=== PATIENT | female | born 1955 | race Caucasian/White ===

== ENCOUNTER → 2017-05-01 | Outpatient (CLI) | payer OTHER ==
--- NOTE | ~2017-05-01 | CR181 ---
[facility]. [facility] A Service of [facility] & [facility] RADIOLOGY TEXT RESULTS PATIENT: KAVON HALE LOCATION: [facility] : 51 UNIT #: [id number] AGE: [address]: Lucas Mccracken MD SEX: F ORDER DR: [id number] [place] [id number] O MR#: [id number] Acc #: [id number] NAME: KAVON HALE : 1955 SEX: F STUDY DATE/TIME: 05/01/2017 11:22 UNIT: [facility] ROOM: STUDY DESCRIPTION: CR Lumbar Spine 2 or 3 Views Attending Physician: Lucas Mccracken M.D. Referring Physician: Lucas Mccracken M.D. Ordering Physician: Lucas Mccracken M.D. Primary Care Physician: Lucas Mccracken M.D. MEDICAL IMAGING REPORT This report is preliminary unless electronic signature is present. EXAM 3 views lumbar spine DATE 05/01/2017 HISTORY 61-year-old female with low back pain for multiple years, since 2000, getting worse. No known injury. Tingling sensation in the right and left lower extremities. COMPARISON None. FINDINGS There is approximately 6.2 degrees levoscoliosis of the lumbar spine centered at the L2-3 level. Advanced facet arthropathy is present on the right at L3-4, L4-5, and L5-S1, and the left at L4-5 and to a lesser degree at L5-S1. No acute lumbar spine fracture or subluxation is seen. There is mild diminished disc height at L5-S1. No suspicious osteolytic or osteoblastic lesions are identified. There is dense calcific atherosclerotic change within the abdominal aorta and bilateral common iliac arteries. Questionable aneurysmal dilation of the infrarenal abdominal aorta up to 4.3 cm based upon measurements of wall calcifications on the lateral view. No sacroiliac joint diastasis. IMPRESSION IMPRESSION 1. Advanced lumbar facet arthropathy greatest on the right from L3-4, L4-5 to L5-S1, and greatest on the left at L4-5. 2. Mild lumbar levoscoliosis centered at L3. STS. [facility] A Service of [facility] & [facility] RADIOLOGY TEXT RESULTS PATIENT: KAVON HALE LOCATION: [facility] : 51 UNIT #: [id number] AGE: [address]: Lucas Mccracken MD SEX: F ORDER DR: 3. Question raised of 4.3 cm fusiform infrarenal abdominal aortic aneurysm. Consider correlation to CTA of the abdomen and pelvis with IV contrast. If the patient cannot tolerate IV contrast, abdominal aortic ultrasound may prove helpful. Dictated by... Josefina Muñoz M.D. THIS IS AN ELECTRONICALLY VERIFIED REPORT Josefina Muñoz M.D. at 05/03/2017 8:59 AM [facility]/bryanna TD: 05/02/2017 13:05 JOB #: [id number] MEDICAL IMAGING REPORT Page 1 of 1
== END | disposition home or self-care (01) ==
LOC: SRAD 11:15
DX: M54.5 Low back pain (principal); M46.96 Unspecified inflammatory spondylopathy, lumbar region; M46.97 Unspecified inflammatory spondylopathy, lumbosacral region; M41.9 Scoliosis, unspecified
CPT/HCPCS: 72100

== ENCOUNTER → 2017-05-19 | Outpatient (CLI) | payer OTHER ==
--- NOTE | ~2017-05-19 | US10 ---
[id number] [facility] [address]. [place], [place] [address] [id number] O MR#: [id number] Acc #: [id number] NAME: KAVON HALE : 1955 SEX: F STUDY DATE/TIME: 05/19/2017 7:49 UNIT: [facility] ROOM: STUDY DESCRIPTION: US Aorta Complete Attending Physician: Rocky Prieto M.D. Referring Physician: Rocky Prieto M.D. Ordering Physician: Rocky Prieto M.D. Primary Care Physician: Rocky Prieto M.D. MEDICAL IMAGING REPORT This report is preliminary unless electronic signature is present EXAM Abdominal aortic duplex. HISTORY Abdominal aortic aneurysm seen on x-ray. FINDINGS Duplex imaging of the abdominal aorta was performed. The abdominal aorta is patent with a proximal diameter of 2.8 x 2.3 cm, mid abdominal aorta measured 3.9 x 3.1 cm, and distally it measures 3.6 x 3.6 cm. IMPRESSION Abdominal aortic duplex shows small abdominal aortic aneurysm with a maximum diameter of 3.9 x 3.1 cm in the midportion. Dictated by... Slava Soler M.D. THIS IS AN ELECTRONICALLY VERIFIED REPORT Slava Soler M.D. at 05/22/2017 4:39 PM Ifeoma TD: 05/20/2017 03:47 JOB #: [id number] MEDICAL IMAGING REPORT Page 1 of 1 COPY
== END | disposition home or self-care (01) ==
LOC: CWCC 07:34
DX: I71.4 Abdominal aortic aneurysm, without rupture (principal); I10 Essential (primary) hypertension; E78.00 Pure hypercholesterolemia, unspecified; F17.290 Nicotine dependence, other tobacco product, uncomplicated
CPT/HCPCS: 76770

== ENCOUNTER → 2017-05-30 | Outpatient (CLI) | payer OTHER ==
[2017-05-30 11:16] LABS: CREATININE SERUM 0.8 mg/dL (0.6-1.4); GLOM FILT RATE Estimated 78.5 mL/min (>60)
== END | disposition home or self-care (01) ==
LOC: CLAB 10:34
PROVIDERS: Registered Nurse
DX: I71.4 Abdominal aortic aneurysm, without rupture (principal)
CPT/HCPCS: 36415; 82565; 84520

== ENCOUNTER → 2017-06-01 | Outpatient (CLI) | payer OTHER ==
--- NOTE | ~2017-06-01 | CT14 ---
[facility] A Service of [facility] & [facility] RADIOLOGY TEXT RESULTS PATIENT: KAVON HALE [facility] UNIT #: [id number] AGE: [address]: Rocky Prieto MD SEX: F ORDER DR: [id number] [facility] [address] [place], [place] [address] [id number] O MR#: [id number] [facility] #: [id number] NAME: KAVON HALE : 1955 SEX: F STUDY DATE/TIME: 06/01/2017 14:06 UNIT: [facility] ROOM: STUDY DESCRIPTION: CT Angio Abdomen and Pelvis Attending Physician: Rocky Prieto M.D. Referring Physician: Rocky Prieto M.D. Ordering Physician: Rocky Prieto M.D. Primary Care Physician: Lucas Mccracken M.D. MEDICAL IMAGING REPORT This report is preliminary unless electronic signature is present EXAM CT angiogram abdomen and pelvis INDICATIONS Followup aortic aneurysm. TECHNIQUE CT angiogram abdomen and pelvis was performed following administration of IV contrast. Coronal, sagittal 3-D reformatted images were obtained. This CT exam was performed with one or more of the following radiation dose reduction techniques: automatic exposure control, adjustment of mA and/or kV according to patient size, and iterative reconstruction. COMPARISON STUDIES No prior CT studies are available for comparison. FINDINGS CT angiogram: There is extensive atherosclerotic atheromatous plaque within the abdominal aorta. There is a focal aneurysmal dilatation of the abdominal aorta measuring about 3.2 cm in greatest AP dimension at the level just above the celiac artery. There is extensive atheromatous plaque at the level of the renal arteries. There is aneurysmal dilatation of the infrarenal abdominal aorta measuring about 3.9 cm in greatest AP dimension. There is a very short neck between the aneurysm at the level of the renal arteries. There is extensive plaque in the iliac arteries but no iliac artery aneurysms. The celiac artery is patent. There is moderate narrowing of the proximal SMA. Neip-mw-tyydxjwn narrowing of the renal arteries. The inferior mesenteric artery is patent. CT of the abdomen: There are emphysematous changes of the lung bases. The liver is unremarkable. The gallbladder and spleen are unremarkable. [facility] A Service of [facility] RADIOLOGY TEXT RESULTS PATIENT: KAVON HALE LOCATION: [facility] : 51 UNIT #: [id number] AGE: [address]: Rocky Prieto MD SEX: F ORDER DR: The kidneys, adrenal glands and pancreas are unremarkable. Pelvis: The colon is unremarkable. The appendix is normal. There is no free fluid. The bone windows show degenerative changes of the lumbar spine. IMPRESSION 1. There is an infrarenal abdominal aortic aneurysm measuring about 3.9 cm in greatest AP dimension with a very short aneurysm neck between the level of the aneurysm and the renal arteries. 2. There is a suprarenal aortic aneurysm measuring about 3.2 cm in greatest AP dimension at the level of the celiac artery. 3. Extensive atheromatous and atherosclerotic plaque involving the aorta and the iliac arteries. Dictated by... Andrew Riddle M.D. THIS IS AN ELECTRONICALLY VERIFIED REPORT Andrew Riddle M.D. at 06/04/2017 12:08 PM [facility]/leidy TD: 06/03/2017 10:26 JOB #: [id number] MEDICAL IMAGING REPORT Page 1 of 1 COPY
== END | disposition home or self-care (01) ==
LOC: CCAT 12:45
DX: I71.4 Abdominal aortic aneurysm, without rupture (principal); I70.0 Atherosclerosis of aorta; I70.8 Atherosclerosis of other arteries
CPT/HCPCS: 74174; Q9967